=== PATIENT | female | born 1955 | race African-American/Black ===

== ENCOUNTER 2018-08-09 18:01 | Emergency (ER) | payer MEDICARE ==
[~2018-08-09] VITALS: Ht 170.2 cm; Wt 104.3 kg
[~2018-08-09 18:01] MED LIST: ALPR0.5T PO; CLON05T PO; GABA300C10 PO; LISI-646 PO
[2018-08-09] MEDS ORDERED: LORazepam 0.5 MG TAB PO ONE (18:45)
[2018-08-09] MEDS ORDERED: ASPirin 81 mg TAB PO ONE (18:45)
[2018-08-09 19:15] VITALS: BP 165/72
[2018-08-09 19:44] LABS: Basophils # (auto) 0 uL; Basophils % (auto) 0.6 % (0.0-2.0); Eosinophils # (auto) 0.1 uL; Eosinophils % (auto) 0.8 % (0.0-7.0); Hematocrit 42.9 % (36.0-46.0); Hemoglobin 13.9 g/dL (12.2-16.2); Lymphocytes # (auto) 1.2 uL; Lymphocytes % (auto) 16.8 % (10.0-50.0); Mean Corpuscular Hemoglobin 30.2 pg (28.0-32.0); Mean Corpuscular Hgb Conc. 32.3 g/dL (32.0-36.0); Mean Corpuscular Volume 93.3 fL (80.0-100.0); Monocytes # (auto) 0.4 uL; Neutrophils # (auto) 5.6 uL; Neutrophils % (auto) 76.8 % (37.0-80.0); Nucleated Red Blood Cells % 0.2 %; Platelet Count (auto) 380 10^3/uL (140-450); Red Cell Distribution Width 15.4 % (11.8-14.3); White Blood Cell 7.3 10^3/uL (4.4-10.8)
[2018-08-09 20:04] LABS: Albumin 3.8 g/dL (3.4-5.0); Anion Gap 13 (5-15); Blood Urea Nitrogen 18 mg/dL (7-18); Calcium 9.2 mg/dL (8.5-10.1); Carbon Dioxide 22 mmol/L (21-32); Chloride 103 mmol/L (98-107); Glucose 102 mg/dL (74-106); Magnesium 2.1 mg/dL (1.6-2.6); Potassium 3.6 mmol/L (3.5-5.1); Sodium 138 mmol/L (136-145)
[2018-08-09 20:06] LABS: Alanine Aminotransferase 30 U/L (13-56); Aspartate Aminotransferase 18 U/L (15-37); BUN/Creatinine Ratio 21.4; GFR African American 88 mL/min; GFR Non-African American 73 mL/min
[2018-08-09 20:11] LABS: Alkaline Phosphatase 94 U/L (45-117); Bilirubin, Total 0.2 mg/dL (0.2-1.0); Total Protein 8.2 g/dL (6.4-8.2)
[2018-08-09] MEDS ORDERED: PROMETHAZINE W/CODEINE 5 ML ORAL SYRUP PO ONE (20:45)
== END 2018-08-09 21:10 | disposition home or self-care (01) ==
LOC: EDBD 18:01 → ER 18:01
DX: R07.89 Other chest pain (principal); I11.0 Hypertensive heart disease with heart failure; I50.9 Heart failure, unspecified; J44.9 Chronic obstructive pulmonary disease, unspecified; Z90.49 Acquired absence of other specified parts of digestive tract
CPT/HCPCS: 36415; 71046; 80053; 83735; 84484; 85025; 93005

== ENCOUNTER 2019-01-02 12:34 | Emergency (ER) | payer MEDICARE, MEDICAID ==
[~2019-01-02] VITALS: Ht 170.2 cm; Wt 108.9 kg
[2019-01-02] MEDS: HYDROcodone-ACET 10/325MG TAB PO ONE (13:22)
[2019-01-02 15:11] VITALS: BP 120/72
== END 2019-01-02 15:11 | disposition home or self-care (01) ==
LOC: ER 12:40
DX: S93.111A Dislocation of interphalangeal joint of right great toe, initial encounter (principal); I11.0 Hypertensive heart disease with heart failure; I50.9 Heart failure, unspecified; K21.9 Gastro-esophageal reflux disease without esophagitis; E78.5 Hyperlipidemia, unspecified; Z90.49 Acquired absence of other specified parts of digestive tract; Z88.1 Allergy status to other antibiotic agents; Z79.899 Other long term (current) drug therapy; W10.8XXA Fall (on) (from) other stairs and steps, initial encounter; Y93.89 Activity, other specified; Y92.89 Other specified places as the place of occurrence of the external cause; Y99.8 Other external cause status
CPT/HCPCS: 28660; 73620; 73630

== ENCOUNTER 2021-11-23 17:32 | Emergency (ER) | payer MEDICARE, MEDICAID ==
[~2021-11-23] VITALS: Ht 170.2 cm; Wt 108.9 kg
[~2021-11-23 17:32] MED LIST changes: +CLON0.5T3 PO; -CLON05T PO; -LISI-646 PO; +LISI20TA28 PO
[2021-11-23 21:40] LABS: Basophils # (auto) 0.1 10 ^3/uL (0-0.2); Basophils % (auto) 0.9 % (0.0-2.0); Eosinophils # (auto) 0.1 10 ^3/uL (0-0.8); Eosinophils % (auto) 0.7 % (0.0-7.0); Hematocrit 38.4 % (36.0-46.0); Hemoglobin 12.8 g/dL (12.2-16.2); Lymphocytes % (auto) 13.6 % (10.0-50.0); Mean Corpuscular Hemoglobin 30.8 pg (28.0-32.0); Mean Corpuscular Hgb Conc. 33.4 g/dL (32.0-36.0); Mean Corpuscular Volume 92.2 fL (80.0-100.0); Monocytes # (auto) 0.4 10 ^3/uL (0-1.3); Monocytes % (auto) 4.9 % (0.0-12.0); Neutrophils # (auto) 6.1 10 ^3/uL (1.6-8.6); Neutrophils % (auto) 79.9 % (37.0-80.0); Nucleated Red Blood Cells % 0.1 %; Red Blood Cells 4.16 10^6/uL (4.0-5.20); Red Cell Distribution Width 15.1 % (11.8-14.3); White Blood Cell 7.7 10^3/uL (4.4-10.8)
[2021-11-23 21:58] LABS: Albumin 3.6 g/dL (3.4-5.0); BUN/Creatinine Ratio 16.8; Calcium 9.6 mg/dL (8.5-10.1); Magnesium 2.3 mg/dL (1.6-2.6); Potassium 4.1 mmol/L (3.5-5.1)
[2021-11-23 22:01] LABS: Bilirubin, Total 0.2 mg/dL (0.2-1.0); Total Protein 7.5 g/dL (6.4-8.2)
[2021-11-24] VITALS: BP 137/65
== END 2021-11-24 01:23 | disposition home or self-care (01) ==
LOC: EDBD 17:32 → ER 17:32
DX: R53.83 Other fatigue (principal); R11.0 Nausea; I11.0 Hypertensive heart disease with heart failure; I50.9 Heart failure, unspecified; J44.9 Chronic obstructive pulmonary disease, unspecified; K21.9 Gastro-esophageal reflux disease without esophagitis; E78.5 Hyperlipidemia, unspecified; Z90.49 Acquired absence of other specified parts of digestive tract; Z90.89 Acquired absence of other organs; Z79.899 Other long term (current) drug therapy; Z88.1 Allergy status to other antibiotic agents
CPT/HCPCS: 36415; 80053; 83735; 85025; 93005